=== PATIENT | female | born 1940 | race Caucasian/White ===

== ENCOUNTER → 2024-04-09 07:33 | Outpatient (REF) | payer MEDICARE, OTHER, SELFPAY | LOC: HWRAD 07:33 | PROVIDERS: ATTENDING PHYSICIAN Internal Medicine | DX: R41.3 Other amnesia (principal); I10 Essential (primary) hypertension; E78.5 Hyperlipidemia, unspecified; D64.9 Anemia, unspecified | CPT/HCPCS: 70450 ==

== ENCOUNTER → 2024-04-14 08:15 | Outpatient (REF) | payer MEDICARE, OTHER, SELFPAY ==
[2024-04-14 11:39] LABS: % Basophils 0.4 % (0-2); % Eosinophils 6.4 % (0-6); % Immature Granulocytes 0.4 % (0-0.5); % Lymphocytes 46.9 % (20.5-51.1); % Monocytes 8.5 % (1.7-9.3); % Neutrophils 37.4 % (42.2-75.2); Absolute Eosinophils 0.3 10^3/uL (0-0.7); Absolute Lymphocytes 2.5 10^3/uL (1.2-3.4); Absolute Monocytes 0.5 10^3/uL (0.1-0.6); Hematocrit 35.2 % (37.0-47.0); Mean Corp Hgb Conc. 34.1 g/dL (33.0-37.0); Mean Corpuscular Hgb 31.7 pg (27.0-31.0); Mean Corpuscular Volume 92.9 fL (81.0-99.0); Mean Platelet Volume 11.2 fL (7.4-10.4); Nucleated Red Blood Cells % 0 %; Platelet Count 160 10^3/uL (130-400); Red Blood Cell Count 3.79 10^6/uL (4.20-5.40); Red Cell Dist. Width 12.5 % (11.5-14.5); White Blood Cell Count 5.3 10^3/uL (4.8-10.8)
[2024-04-14 12:00] LABS: ALT (SGPT) 19 U/L (0-35); AST (SGOT) 28 U/L (14-36); Alkaline Phosphatase 75 U/L (38-126); Blood Urea Nitrogen 20 mg/dl (7-17); Calcium 9.5 mg/dl (8.4-10.2); Carbon Dioxide 27 mmol/L (22-30); Chloride 106 mmol/L (98-107); Glucose 92 mg/dl (70-99); HDL Cholesterol 100 mg/dl; LDL Cholesterol, Calculated 69 mg/dl; Potassium 4.4 mmol/L (3.5-5.1); Sodium 139 mmol/L (135-145); Total Bilirubin 0.5 mg/dl (0.2-1.3); Total Cholesterol 181 mg/dl (50-199); Total Protein 6.4 g/dl (6.3-8.2); Triglyceride 63 mg/dl (10-149); Urine Albumin Negative (Neg - Trace); Urine Bilirubin Negative (Negative); Urine Character Slightly Cloudy (Clear); Urine Color Yellow; Urine Glucose Negative (Negative); Urine Ketone Negative (Negative); Urine Leukocyte Negative (Negative); Urine Nitrite Negative (Negative); Urine Occult Blood Negative (Negative); Urine Specific Gravity 1.015 (<1.030); Urine Urobilinogen Negative (Neg - 1+); Very Low Density Lipoprotein 12 mg/dl (0-30); eGFR > 60.00
== END ==
LOC: HWLAB 08:15
PROVIDERS: ATTENDING PHYSICIAN Internal Medicine
DX: I10 Essential (primary) hypertension (principal); R41.3 Other amnesia; E78.5 Hyperlipidemia, unspecified; D64.9 Anemia, unspecified
CPT/HCPCS: 36415; 80053; 80061; 81003; 84443; 85025

== ENCOUNTER → 2025-03-07 10:32 | Outpatient (REF) | payer MEDICARE, OTHER, SELFPAY | LOC: HWRAD 10:32 | PROVIDERS: ATTENDING PHYSICIAN Internal Medicine | DX: R41.3 Other amnesia (principal); I10 Essential (primary) hypertension; E78.5 Hyperlipidemia, unspecified; I47.10 Supraventricular tachycardia, unspecified | CPT/HCPCS: 70450 ==

== ENCOUNTER 2025-04-27 15:57 | Emergency (ER) | payer MEDICARE, OTHER, SELFPAY ==
[2025-04-27 16:04] VITALS: BP 186/102
[2025-04-27 16:24] LABS: % Basophils 0.6 % (0-2); % Eosinophils 4.6 % (0-6); % Immature Granulocytes 0.2 % (0-0.5); % Lymphocytes 23.2 % (20.5-51.1); % Monocytes 9.1 % (1.7-9.3); % Neutrophils 62.3 % (42.2-75.2); Absolute Basophils 0.1 10^3/uL (0-0.2); Absolute Eosinophils 0.4 10^3/uL (0-0.7); Absolute Monocytes 0.8 10^3/uL (0.1-0.6); Absolute Neutrophils 5.5 10^3/uL (1.4-6.5); Hematocrit 34.9 % (37.0-47.0); Mean Corp Hgb Conc. 34.4 g/dL (33.0-37.0); Mean Corpuscular Hgb 32.7 pg (27.0-31.0); Mean Corpuscular Volume 95.1 fL (81.0-99.0); Mean Platelet Volume 11.8 fL (7.4-10.4); Nucleated Red Blood Cells % 0 %; Platelet Count 129 10^3/uL (130-400); Red Blood Cell Count 3.67 10^6/uL (4.20-5.40); Red Cell Dist. Width 12.1 % (11.5-14.5); White Blood Cell Count 8.8 10^3/uL (4.8-10.8)
[2025-04-27 16:37] LABS: ALT (SGPT) 18 U/L (0-35); AST (SGOT) 25 U/L (14-36); Albumin 4.3 g/dl (3.5-5.0); Alkaline Phosphatase 68 U/L (38-126); Blood Urea Nitrogen 21 mg/dl (7-17); Calcium 9.3 mg/dl (8.4-10.2); Carbon Dioxide 26 mmol/L (22-30); Chloride 110 mmol/L (98-107); Glucose 113 mg/dl (70-99); Potassium 4.6 mmol/L (3.5-5.1); Sodium 140 mmol/L (135-145); Total Bilirubin 0.7 mg/dl (0.2-1.3); Total Protein 6.8 g/dl (6.3-8.2); eGFR > 60.00
[2025-04-27 16:48] LABS: Troponin I < 0.012 ng/ml
--- NOTE | 2025-04-27 17:58 | ED.GENMED ---
History of Present Illness
General
Chief Complaint: Chest Pain
Source: patient and spouse
Exam Limitations: none
Time Seen by Provider: 04/27/25 17:57
History of Present Illness
History of Present Illness:
84yoF with a history of hypertension, hyperlipidemia, GERD presenting with her for evaluation of left-sided neck pain. Patient woke up yesterday with some discomfort in her left neck. She applied a heating pad and took Motrin with
improvement. She continued to have this discomfort today. 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 Pain started to radiate to her upper back and she became worried
that she was having a heart attack. She denies any chest pain, shortness of breath, paresthesias, fevers, neck stiffness, URI symptoms.
Past History
Past History
ED Past Medical History: Arrthythmia (SVT), GERD, HTN and Other (HLD)
ED Past Surgical History: Cardiac (ablation for SVT)
Social History
Tobacco: Non-smoker
Alcohol: None
Drug: None
Personal:
Living: with family
Employment: Retired
Phy Exam
General Physical Exam
General Presentation: well appearing and no apparent distress
General Skin: warm and dry
General Habitus: normal
General Mental: alert
ENT Exam
ENT Exam: normocephalic and other (+Tenderness to cervical portion of L trapezius muscle. No skin changes. No midline spinous process. No carotid bruit.)
Cardiovascular Exam
Cardiovascular Exam: regular rate/rhythm, no murmur and normal peripheral pulses
Pulmonary Exam
Pulmonary Exam: lungs clear, no respiratory distress, no rales, no crackles, no rhonchi and no wheezing
Neurological Exam
Neurological Exam: alert
Bhavana Coma Scale
Eye Opening: Spontaneous
Verbal Response: Oriented
Motor Response: Obeys Commands
GCS Total Score: 15
Skin Exam
Skin Exam: normal color and warm/dry
Psychiatric Exam
Psychiatric Exam: normal mood/affect
Scores
Heart Score for Chest Pain Patients
STEMI patient?: No
History: Slightly or Non-Suspicious
ECG: Normal
Age: >/= 65 years
Risk Factors: 1 or 2 Risk Factors
Troponin: </= Normal Limit
Heart Score for Chest Pain Patients: 3
Heart Score Risk: 2.5% MACE over next 6 weeks
Course
Orders/Labs/Results
Orders:
Orders
04/27/25 15:58
Electrocardiogram (*1) Urgent
Reason for Study: Other
Other Reason for Exam: shoulder and neck pain
EKG- Treatment ONCE
04/27/25 16:15
Complete Blood Count/With Diff Urgent
Comprehensive Metabolic Panel Urgent
Troponin I Urgent
04/27/25 18:23
Electrocardiogram (*1) Urgent
Reason for Study: Other
Other Reason for Exam: neck pain
EKG- Treatment ONCE
Acetaminophen 1000MG/100Ml [Ofirmev] 1,000 mg in 100 ml IV ONCE
Acetaminophen IV Indication:: ED Narcotic Naive Pt-ONCE
Ketorolac [Toradol] 15 mg IV NOW STA
Lidocaine [Lidocaine 4% Patch] 1 patch TOPICAL NOW STA
Apply Lidocaine patch(s) to:: L neck
04/27/25 18:34
Troponin I Urgent
Abnormal Lab Results
04/27/25
16:15
RBC 3.67 L 10^6/uL
(4.20-5.40)
Hct 34.9 L %
(37.0-47.0)
MCH 32.7 H pg
(27.0-31.0)
Plt Count 129 L 10^3/uL
(130-400)
MPV 11.8 H fL
(7.4-10.4)
Absolute Monos (auto) 0.8 H 10^3/uL
(0.1-0.6)
Chloride 110 H mmol/L
(98-107)
BUN 21 H mg/dl
(7-17)
Glucose 113 H mg/dl
(70-99)
04/27/25 16:15
04/27/25 16:15
Vital Signs
Initial and Last Documented VS:
Initial Vital Signs
Temp Pulse Resp BP Pulse Ox
98.5 F 72 18 186/102 99
04/27/25 16:04 04/27/25 16:04 04/27/25 16:04 04/27/25 16:04 04/27/25 16:04
Last Documented Vital Signs
Temp Pulse Resp BP Pulse Ox
98.5 F 71 17 163/71 99
04/27/25 16:04 04/27/25 19:45 04/27/25 19:45 04/27/25 19:00 04/27/25 19:45
MDM/Problems Addressed
Differential Diagnosis Includes:
84yoF here with atraumatic L neck pain that started when she woke up yesterday morning. Worse with movement. Better with heat/NSAIDs. Pain started to radiate to her upper back and she was worried that she was having a heart attack. No CP/SOB. She is
hypertensive with otherwise stable vitals. There is reproducible muscular tenderness on exam. Differential diagnosis includes but is not limited to: muscular strain, doubt ACS, doubt fracture
*EKG
Interpreted by ED Provider?: Yes
EKG Intrepretation Date: 04/27/25
Heart Rate: 70
Rate: normal
Rhythm: sinus
[place]: normal axis
Interval: normal interval
QRS Pattern: normal QRS
Ischemia: no ischemia
*Critical Care Note
Total Time (30-74mins, 75-104mins- exclusive of procedures): Not Applicable
Update Note
Update Note:
Repeat EKG and troponin WNL. Patient feeling improved on reassessment. No indication for hospitalization. Presentation consistent with a muscle strain. Supportive care reviewed. Advised follow-up with PCP and ED return precautions discussed.
Patient in agreement with plan and was discharged in stable condition.
ED Attending Note
-
Portions of this chart may have been created with voice recognition software.� Occasional wrong word or��sound alike� substitutions may have occurred due to the inherent limitations of voice recognition software.
Discharge Plan
Departure
Patient Disposition: Home (Routine Discharge)
Date of Disposition: 04/27/25
Time of Disposition: 19:39
Patient with high blood pressure during this ER visit?: Yes
Discharge Problem:
Strain of cervical portion of left trapezius muscle
Instructions: Cervical Sprain ED
Prescriptions:
No Action
sennosides [Senna Laxative] 8.6 MG tablet
8.6 mg PO MOWEFR
simvastatin 20 MG tablet
20 mg PO QPM
omeprazole 20 MG capsule,delayed release(DR/EC)
20 mg PO DAILY
aspirin 81 MG tablet,chewable
81 mg PO QPM
estradiol 1 APPLIC cream
1 applic vaginal SUWE
glucosamine-chondroitin 1 EACH capsule
1 ea PO DAILY
Patient Comments:
1500mg
docusate sodium [Stool Softener] 100 MG tablet
100 mg PO BID
escitalopram oxalate 10 MG tablet
10 mg PO DAILY
levothyroxine 25 MCG tablet
25 mcg PO DAILY
multivitamin 1 EACH tablet
2 ea PO DAILY
cholecalciferol (vitamin D3) [Vitamin D3] 2,000 UNIT capsule
2,000 unit PO SUTUTH
calcium carbonate-vitamin D3 [Caltrate 600 plus D] 1 EACH tablet,chewable
2 ea PO DAILY
cyanocobalamin (vitamin B-12) 1,000 MCG capsule
1,000 mcg PO SUTUTH
famotidine [Acid [employer] (famotidine)] 20 MG tablet
20 mg PO HS
Blood Pressure Pill
1 tab PO DAILY
Referrals:
Vic Quinonez MD [Family Provider, Internal Medicine]
Activity Restrictions/Additional Instructions:
Apply heat to affected area and massage. Take Tylenol 650mg and ibuprofen 400mg every 6 hours as needed for pain. Use lidocaine patches daily (12 hours on, 12 hours off).
Please follow-up with your family doctor. Return to the ER with any new or worsening symptoms including chest pain, fevers, or severe pain.
Interventions
Interventions:
*Risk Screen - Suicide Last Done: 04/27/25 16:04
*General Assessment Last Done: 04/27/25 16:04
*Neglect/Abuse Screening Last Done: 04/27/25 18:25
*ED- Fall Risk Assessment Last Done: 04/27/25 18:25
*ED COVID-19 Vaccine History Last Done: 04/27/25 18:25
*Nursing Disposition Last Done: 04/27/25 20:51
ED- Cardiac Assessment Last Done: 04/27/25 18:25
Discharge Date and Time
Discharge Date/Time: 04/27/25 20:51
Print Language: [email or web address]
[2025-04-27 18:25] VITALS: BP 176/78; BMI 29.5
[2025-04-27 18:39] VITALS: BP 170/74
[2025-04-27] MEDS: TORADOL 15 MG IV (18:40)
[2025-04-27] MEDS: LIDOCAINE 4% PATCH 1 PATCH TOPICAL (18:40)
[2025-04-27] MEDS: OFIRMEV 100 IV (18:47)
[2025-04-27 19:00] VITALS: BP 163/71
[2025-04-27 19:09] LABS: Troponin I < 0.012 ng/ml
== END 2025-04-27 20:51 | disposition home or self-care (01) ==
LOC: EMR 15:57
PROVIDERS: Emergency Medicine; Physician Assistant; EMERGENCY PHYSICIAN Emergency Medicine; FAMILY PHYSICIAN Internal Medicine
DX: S16.1XXA Strain of muscle, fascia and tendon at neck level, initial encounter (principal); S29.012A Strain of muscle and tendon of back wall of thorax, initial encounter; X58.XXXA Exposure to other specified factors, initial encounter; I10 Essential (primary) hypertension; E78.00 Pure hypercholesterolemia, unspecified; K21.9 Gastro-esophageal reflux disease without esophagitis; I25.2 Old myocardial infarction
CPT/HCPCS: 99283; 96374; 96375; 80053; 84484; 85025; 93005

== ENCOUNTER → 2025-04-28 14:10 | Outpatient (REF) | payer MEDICARE, OTHER, SELFPAY | LOC: HWWDC 14:10 | PROVIDERS: ATTENDING PHYSICIAN Physician Assistant | DX: Z12.31 Encounter for screening mammogram for malignant neoplasm of breast (principal) | CPT/HCPCS: 77063; 77067 ==